=== PATIENT | male | born 1955 | race Caucasian/White ===

== ENCOUNTER 2020-10-11 18:04 | Emergency (ER) | payer MEDICARE, MEDICAID, SELFPAY ==
--- NOTE | ~2020-10-11 | XR_ITS ---
EXAMINATION: XR hip RT 2V w AP pelvis DATE: 10/11/2020 19:05 INDICATION: Right hip and pelvic injury post fall TECHNIQUE: Anteroposterior view of the pelvis and anteroposterior, frog leg and cross-table lateral v iews of the right hip were obtained. COMPARISON: None. FINDINGS: Intratrochanteric fracture of the proximal right femur which extends small distance into the anterior subtrochanteric region. 7 mm posterior displacement and approximately 30 degrees varus angulation. T he right femoral head remains normally centered in the right acetabulum with relatively preserved radha ateral hip joint spaces. No other fractures identified. Mild mild lumbosacral dextrocurvature. Modera te to severe bilateral lumbosacral facet osteoarthritis. IMPRESSION: 1. Mild posterior displacement and 30 degrees varus angulation of an intratrochanteric/subtrochanteri c fracture of the proximal right femur. Reviewed, dictated and finalized at location A. IMPRESSION: 1. Mild posterior displacement and 30 degrees varus angulation of an intratroch anteric/subtrochanteric fracture of the proximal right femur.
[2020-10-11 18:58] VITALS: BP 142/92; PULSE 75; RESP 20; TEMP 36.7; O2SAT 98
--- NOTE | 2020-10-11 20:50 | ED.LOWEXIN ---
HPI - Extremity Injury (Lower) General Chief Complaint: Extremity Injury, Lower Stated Complaint: AMB Source: patient and EMS Mode of arrival: EMS Limitations: physical limitation History of Present Illness HPI Narrative: this is 65-year-old gentleman that presents to the hospital emergency department with some right hip pain after he fell out of bed trying to get to the bathroom. The patient has a history of post-polio syndrome is currently nonambulatory but has a pain that he rates it about a currently 4/10 patient was given pain medication and route via EMS currently he is comfortable with no shortness of breath no fever chills no chest pain no abdominal pain no dysuria. The only medication he takes at home is narcotic/ gabapentin that he takes for chronic pain secondary to his post-polio syndrome. complaint: hip injury Onset (ago): hour(s) Injury: Right: hip ( hip pain) Type of Injury: blunt Place: home Severity: moderate Severity scale (1-10): 6 Relieving factors: immobilization and rest Exacerbating factors: movement Context: fall Related Data Home Medications Medication Instructions Recorded Confirmed gabapentin 600 mg PO BID 10/11/20 10/11/20 oxycodone myristate [Xtampza ER] 9 mg PO DAILY 10/11/20 10/11/20 oxycodone-acetaminophen 1 tablet PO TID 10/11/20 10/11/20 Allergies Allergy/AdvReac Type Severity Reaction Status Date / Time citalopram Allergy Unknown Unknown Verified 10/11/20 19:05 Review of Systems Review of Systems: All systems reviewed & are unremarkable except as noted in HPI and below PMFSH Past Medical History Medical History Post-polio syndrome Family History Family History Father Diabetes mellitus Hypertension Mother Diabetes mellitus Hypertension Social History Social History Smoking status: Never smoker Alcohol intake: never Gender identity (if verbalized by the patient): Male Exam Const: General: no acute distress HENMT: Head: normal to inspection Eyes: Conjunctivae: conjunctivae normal Pupils: Equal, round and reactive pupils present EOM: EOMs intact bilaterally Direct Ophthalmoscopy: no photophobia Neck: Neck: normal visual inspection, no lymphadenopathy and no meningeal signs Chest: Chest palpation & inspection: normal inspection of the chest Resp: Effort & Inspection: normal respiratory effort Auscultation: clear to auscultation bilaterally Cardio: Rate: regular rate Rhythm: regular rhythm GI: GI Palp: Yes Soft to palpation Percussion: Yes normal to percussion : Testes: Testes normal Back/Spine/Pelvis: Back: no CVA tenderness Skin: General skin exam: normal color Rashes: no rashes Neuro: General: patient oriented x3 and no focal motor deficits Extrem: Other: patient with post-polio syndrome has a chronic contractures of his lower extremities and having pain with movement of his right hip area Psych: Appearance: grossly normal Mental Status: mental status grossly normal Affect: normal affect Thought content: Yes Normal thought content present Course Course Emergency Course: patient do reassessment is comfortable pain level is tolerable and no acute distress vitals are stable, talked to [facility] which has accepted to their service. [facility] accepted patient Vital Signs Vital signs: Vital Signs Temperature 36.7 C 10/11/20 18:58 Pulse Rate 75 10/11/20 18:58 Respiratory Rate 20 10/11/20 18:58 Blood Pressure 142/92 H 10/11/20 18:58 Pulse Oximetry 98 10/11/20 18:58 Temperature 36.7 C 10/11/20 18:58 Pulse Rate 75 10/11/20 18:58 Respiratory Rate 20 10/11/20 18:58 Blood Pressure 142/92 H 10/11/20 18:58 Pulse Oximetry 98 10/11/20 18:58 Critical Care Time Critical Care Time Critical Care Time: No Di
--- NOTE | 2020-10-11 21:20 | ECG_ITS ---
Measurements Intervals [place] Rate: P: [place]: QRS: QRSD: T: QT: QTc: Interpretive Statements SINUS TACHYCARDIA RIGHT AXIS DEVIATION RIGHT BUNDLE BRANCH BLOCK ABNORMAL ECG Electronically Signed On 10-13-2020 12:24:40 CDT by Mehran Vigil D.O.
[2020-10-11 21:38] LABS: Basophils Absolute Auto 0.06 K/mm3 (0.00-0.10); Basophils Percent Auto 0.3 % (0.0-1.0); Eosinophils Absolute Auto 0.04 K/mm3 (0.02-0.50); Eosinophils Percent Auto 0.2 % (1.0-6.0); Hematocrit 45.1 % (37.0-46.0); Hemoglobin 14.4 g/dL (12.4-15.3); Immature Granulocyte Absolute 0.09 K/mm3 (0.00-0.00); Immature Granulocyte Percent A 0.5 % (0.0-0.0); Lymphocytes Absolute Auto 1.16 K/mm3 (1.10-4.50); Lymphocytes Percent Auto 6.6 % (18.0-42.0); Mean Corpuscular HGB Conc 31.9 g/dL (32.0-36.0); Mean Corpuscular Hemoglobin 30.6 pg (27.0-31.0); Monocytes Absolute Auto 1.18 K/mm3 (0.10-0.90); Monocytes Percent Auto 6.7 % (2.0-11.0); Neutrophils Percent Auto 85.7 % (50.0-70.0); Platelet Count Result 275 K/mm3 (150-420); Red Cell Distribution Width 13.5 % (11.6-14.4); White Blood Count 17.6 K/mm3 (4.8-10.8)
[2020-10-11 21:58] LABS: Alanine Aminotransferase 19 U/L (16-63); Albumin Level 3.6 g/dL (3.4-5.0); Alkaline Phosphatase 96 U/L (46-116); Anion Gap 5 mmol/L (8-16); Aspartate Amino Transferase 13 U/L (15-37); Bilirubin,Total 0.4 mg/dL (0.00-1.00); Blood Urea Nitrogen 12 mg/dL (7-18); Calcium 8.9 mg/dL (8.5-10.1); Carbon Dioxide 32 mmol/L (21-32); Chloride 102 mmol/L (98-108); Estimated CRCL calculation 87 ml/min; Estimated Glomerular Filt Rate > 60; Glucose 142 mg/dL (70-99); Osmolality Calculated 289 mOsm/kg (285-295); Partial Thromboplastin Time 27.1 SEC (23.90-30.70); Potassium 3.8 mmol/L (3.5-5.1); Prothrombin Time 10.5 Seconds (9.50-12.10); Sodium 139 mmol/L (136-145); Total Protein 7.1 g/dL (6.4-8.2)
[2020-10-11 22:09] LABS: Add Urine Microscopic? NO; Appearance Urine Clear (Clear); Bilirubin Urine Negative (Negative); Blood Urine Negative (Negative); Color Urine Yellow (Yellow); Glucose Urine UA Negative (Negative); Ketones Urine Negative (Negative); Leukocyte Esterase Ur Negative (Negative); Nitrate Urine Negative (Negative); Protein Urine Negative (Negative); Specific Grav Ur <= 1.005 (1.010-1.020); Urobilinogen Urine 0.2 mg/dL (0.2-1.0)
[2020-10-11 22:12] VITALS: BP 140/90; PULSE 72; RESP 20; O2SAT 95
[2020-10-11] MEDS: MORPHINE SULFATE (*CRX) 4 MG/ML INJ IV PUSH (22:35)
[2020-10-11 23:19] VITALS: BP 96/82; PULSE 78; RESP 20; TEMP 36.9
--- NOTE | 2020-10-11 23:46 | PC.NURSE ---
gbaas here , report to javier, ems staff. pt loaded to cot.
[2020-10-12 00:02] VITALS: BP 142/79; PULSE 87; RESP 20; TEMP 36.6; O2SAT 94
== END 2020-10-12 00:03 | disposition short-term general hospital (02) ==
PROVIDERS: Emergency Provider Emergency Medicine
DX: S72.21XA Displaced subtrochanteric fracture of right femur, initial encounter for closed fracture (principal); W06.XXXA Fall from bed, initial encounter
CPT/HCPCS: 36415; 73502; 80053; 81003; 85025; 85610; 85730; 93005; 96374; 99285; J2270

== ENCOUNTER 2020-10-12 02:09 | Inpatient (IN) | payer MEDICARE, MEDICAID, SELFPAY ==
--- NOTE | ~2020-10-12 | XR_ITS ---
EXAMINATION: XR surgery orthopedic EXAM DATE: 10/14/2020 13:03 INDICATION: Right hip gamma nail insertion. TECHNIQUE: Fluoroscopy used during XR surgery orthopedic performed by Dr. Berny Frost MD. Rad iologist was not present for the imaging or procedure. Total fluoroscopic time of 1083 seconds. The DAP for this procedure was 2.2 mGym2. A total of 6 images sent to PACS from the exam. There is no prior study for comparison. FINDINGS: Images demonstrate intertrochanteric fracture, right hip gamma nail in expected position. Correlate with procedure note. IMPRESSION: Fluoroscopy used during right hip gamma nail insertion. Reviewed, dictated and finalized at location B.
--- NOTE | 2020-10-12 00:53 | ADMGEN ---
This patient, Pan Sullivan, was admitted to Medical Room 255-01 10/12/2020 @ 0030. Patient/family oriented to hospital policies and general routines including ID bracelet, bed and alarms, visiting hours, pain management, procedures, bathroom and other care routines, personal items, smoking policy, room service/diet, and visiting hours. Information on how to activate the Rapid Response Team has been discussed. Patient/Family are encouraged to report perceived risks to care and to ask questions if they do not understand what they are told or what they should do.
[2020-10-12 01:00] VITALS: BP 101/83; PULSE 95; RESP 20; TEMP 36.6; O2SAT 97
[2020-10-12 01:03] VITALS: BMI 22.1
[2020-10-12] MEDS: SODIUM CHLORIDE 0.9% IV 1,000 ML 100 ML IV CONT (02:31)
[2020-10-12] MEDS: MORPHINE SULFATE (*CRX) 4 MG/ML INJ IV PUSH (02:32)
[2020-10-12] MEDS: HYDROmorphone HCL INJ (*CRX) 1 MG/ML SYR IV PUSH ×4 (05:28→20:44)
[2020-10-12 06:11] VITALS: BP 117/84; PULSE 97; RESP 20; TEMP 36.4; O2SAT 97
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
--- NOTE | 2020-10-12 08:47 | PM.IMPN ---
Progress Note: A&P Assessment and Plan (1) Fracture of femur: Qualifiers: Encounter type: initial encounter Femur location: subtrochanteric Fracture alignment: displaced Fracture type: closed Laterality: right Qualified Code(s): S72.21XA - Displaced subtrochanteric fracture of right femur, initial encounter for closed fracture <Angelia Joyner PA-C - Last Filed: 10/12/20 09:01> Code(s): S72.90XA - Unspecified fracture of unspecified femur, initial encounter for closed fracture <Angelia Joyner PA-C - Last Filed: 10/12/20 09:01> Status: Acute <Angelia Joyner PA-C - Last Filed: 10/12/20 09:01> Assessment and Plan: Symptoms an x-ray consistent with hip fracture -x-ray reveals Mild posterior displacement and 30 degrees varus angulation of an intratrochanteric/subtrochanteric fracture of the proximal right femur. -Dr. Patterson has been consulted -patient may require increased narcotics since he takes Xtampza at home as well as oxy 7.5 PRN -Will continue oxycodone 7.5mg and Dilaudid for now and adjust as needed. -The patient is NPO due to potential for possible surgical procedure. <Angelia Joyner PA-C - Last Filed: 10/12/20 09:01> (2) Leukocytosis: Code(s): D72.829 - Elevated white blood cell count, unspecified <Angelia Joyner PA-C - Last Filed: 10/12/20 09:01> Status: Acute <Angelia Joyner PA-C - Last Filed: 10/12/20 09:01> Assessment and Plan: Most likely reactive and not due to acute infectious process -no signs or symptoms of infection <Angelia Joyner PA-C - Last Filed: 10/12/20 09:01> (3) Post-polio syndrome: Code(s): G14 - Postpolio syndrome <Angelia Joyner PA-C - Last Filed: 10/12/20 09:01> Status: Acute <Angelia Joyner PA-C - Last Filed: 10/12/20 09:01> Assessment and Plan: Chronic and lives at home and is usually able to transfer from the bed to wheelchair without issue. -will need PT/OT depending on ortho recommendations <Angelia Joyner PA-C - Last Filed: 10/12/20 09:01> Time Spent With Patient Time with patient: 25 - 35 minutes <KIYA Castaneda Last Filed: 10/12/20 09:01> Subjective Date/time seen: 10/12/20 08:47 <KIYA Castaneda Last Filed: 10/12/20 09:01> Interval history: Pt is a 65-year-old male here for hip fracture after falling out of bed. Patient was seen today and states his pain is a 7/10. He says it feels okay if he is still but if he moves at all, he is in significant pain. He has no numbness or tingling to the area but he says that leg is pretty flaccid because of his chronic polio affects. Pt denies nausea, vomiting, fevers, chills, dysuria, constipation, diarrhea, chest pain, sob, or abdominal pain. <KIYA Castaneda Last Filed: 10/12/20 09:01> Review of Systems Review of Systems: All systems reviewed & are unremarkable except as noted in HPI and below <KIYA Castaneda Last Filed: 10/12/20 09:01> Exam Narrative: Exam Narrative: General: Patient resting comfortably in bed in no acute distress HEENT: Asymmetry due to polio Neck: supple Neuro: Alert and oriented x 4. CV:RRR Resp:CTA Abd: Soft, non distended. No pain to palpation. Positive bowel sounds. Well-healed scars from previous abdominal surgeries Extremities: Right leg externally rotated with 2+ pulses. He states this leg is flaccid and can be moved in any position but he has no strength whatsoever at baseline. <KIYA Castaneda Last Filed: 10/12/20 09:01> Objective Data Vital Signs Vital Signs: Vital Signs - 24 hr 10/12/20 01:00 10/12/20 06:11 Temperature 97.9 F 97.5 F L Pulse Rate 95 97 Respiratory Rate 20 20 Blood Pressure 101/83 117/84 Pulse Oximetry 97 97 <Angelia Joyner PA-C - Last Filed: 10/12/20 09:01> Intake/Output Intake/Output: Intake & Output 10/09/20 04
[2020-10-12] MEDS: GABAPENTIN 300 MG CAPSULE 600 MG PO ×2 (09:05→20:20)
[2020-10-12] MEDS: oxyCODONE/ACETAMINOPHEN (*CRX) 5-325 MG TABLET 1 TABLET PO ×2 (09:12→16:28)
[2020-10-12] MEDS: SODIUM CHLORIDE 0.9% IV 1,000 ML 75 ML IV CONT (12:21)
[2020-10-12 14:00] VITALS: BP 122/83; PULSE 91; RESP 16; TEMP 36.8; O2SAT 94
--- NOTE | 2020-10-12 15:30 | PM.CNOR ---
Assessment and Plan Additional Plan 4 YO MALE WITH POST POLIO SYNDROME AND NOW WITH RIGHT INTER TROCHANTERIC HIP FRACTURE. I HAD A LONG DISCUSSION WITH PATIENT AND SISTER WHO IS HIS 1a SCIENTIFIC TECHNICAL WRITER. HE WILL REQUIRE PLACEMENT OF GAMMA ANNE RIGHT FEMUR. DISCUSSED NONOPERATIVE AND OPERATIVE TREATMENT OPTIONS WITH THE PATIENT AND HIS SISTER. THE PATIENT'S QUESTIONS WERE ANSWERED. THE PATIENT DESIRES OPERATIVE TREATMENT. DISCUSSED RIGHT GAMMA ANNE PLACEMENT . RISKS OF SURGERY INCLUDING BUT NOT LIMITED TO NEUROVASCULAR DAMAGE, WOUND COMPLICATIONS, BLOOD CLOT, PULMONARY EMBOLUS, STROKE, MA, ANESTHETIC RISKS UP TO AND INCLUDING WERE REVIEWED. CONTINUED PAIN AND POSSIBLE DYSFUNCTION WERE EXPLAINED. NO GUARANTEES WERE OFFERED. THE PATIENT UNDERSTANDS AND WISHES TO PROCEED. WE WILL PROCEED ONCE HE IS CLEARED BY INTERNAL MEDICINE. History of Present Illness HPI Consult date: 10/12/20 Chief complaint: Hip fracture Narrative: NEEMA IS A 65 YO GENTLE WITH POST POLIO SYNDROME WHO FELL OUT OF BED AND LANDED ON HIS RIGHT SIDE SUSTAINING A RIGHT INTER TROCHANTERIC HIP FRACTURE. HE HAS HAD POLIO SINCE HE WAS A CHILD. HIS RIGHT LOWER EXTREMITY HAS BEEN AFFECTED GREATER THAN HIS LEFT. HE ALSO HAS MORE COMPROMISE WITH HIS UPPER EXTREMITIES AND MOVEMENT IS LIMITED. HE HAS SEVERE PAIN WITH ANY MOVEMENT OF THE RIGHT HIP. HE DENIES ANY PAIN TO HIS OTHER EXTREMITIES NECK AND BACK. HE DENIES ANY LOC. HE IS OX3. Review of Systems Review of Systems: All systems reviewed & are unremarkable except as noted in HPI and below (THE HISTORY) PMFSH Past Medical History Medical History Anxiety Chronic pain due to trauma Closed left hip fracture At age 18 treated nonsurgically Depression Post-polio syndrome Surgical History Surgical History History of orthopedic surgery Multiple corrective surgeries at [facility] his left leg when he was approximately 10 years old S/P rolan-rectal abscess repair, follow-up exam Status post open reduction with internal fixation of fracture Left ankle fracture Family History Family History Father Diabetes mellitus Hypertension Mother Diabetes mellitus Hypertension Sibling Congenital cataract Blind in both eyes Social History Social History Social History: The patient and his one sister live together. He has been wheelchair dependent for 20 years. He has been on disability for his lifetime. He smoked about a half pack of cigarettes per day for less than 10 years but quit smoking in his 20s. He denies any history of alcohol use or illicit substance use. He has never been and does not have any children. He used to enjoy riding motorcycles when he was younger. Primary care physician: Dr. Steen Code status: DNR/DNI per patient request Surrogate decision maker: Heidimanuel Sullivan (sister) Years smoked: 10 Smoking status: Former smoker Tobacco type: cigarettes Alcohol intake: never Substance use: never Gender identity (if verbalized by the patient): Male Spiritual care concerns: No Meds Home Medications and Allergies Home Medications Medication Instructions Recorded Confirmed Type gabapentin 600 mg PO BID 10/11/20 10/12/20 History oxycodone myristate [Xtampza ER] 9 mg PO DAILY 10/11/20 10/12/20 History oxycodone-acetaminophen 1 tablet PO TID 10/11/20 10/12/20 History Allergies Allergy/AdvReac Type Severity Reaction Status Date / Time No Known Allergies Allergy Verified 10/12/20 01:11 Vital Signs Vital Signs - 24 hr 10/12/20 01:00 10/12/20 06:11 10/12/20 14:00 Temperature 36.6 C 36.4 C L 36.8 C Pulse Rate 95 97 91 Respiratory Rate 20 20 16 Blood Pressure 101/83 117/84 122/83 Pulse Oximetry 97 97 94 Exam Neuro:
[2020-10-12] MEDS: oxyCODONE HCL (*CRX) 2.5 MG TAB IR PO (16:28)
[2020-10-12 22:00] VITALS: BP 109/66; PULSE 87; RESP 18; TEMP 36.8; O2SAT 96
[2020-10-13] MEDS: oxyCODONE/ACETAMINOPHEN (*CRX) 5-325 MG TABLET 1 TABLET PO ×3 (01:17→20:08)
[2020-10-13] MEDS: SODIUM CHLORIDE 0.9% IV 1,000 ML 75 ML IV CONT ×2 (02:42→16:14)
[2020-10-13] MEDS: HYDROmorphone HCL INJ (*CRX) 1 MG/ML SYR IV PUSH ×5 (02:44→23:53)
[2020-10-13 05:19] LABS: Basophils Absolute Auto 0.1 K/mm3 (0.0-0.1); Basophils Percent Auto 0.4 % (0.2-1.2); Eosinophils Absolute Auto 0.3 K/mm3 (0-0.3); Eosinophils Percent Auto 1.8 % (0-4.4); Hematocrit 40.6 % (42.0-52.0); Hemoglobin 12.8 g/dL (14.0-18.0); Immature Granulocyte Absolute 0.06 K/mm3 (0.00-0.031); Immature Granulocyte Percent A 0.4 % (0-0.5); Lymphocytes Absolute Auto 1.84 K/mm3 (0.9-3.2); Lymphocytes Percent Auto 13.5 % (18.3-44.2); Mean Corpuscular HGB Conc 31.5 g/dl (32-36); Mean Corpuscular Hemoglobin 30.5 pg (26-34); Mean Corpuscular Volume 96.7 fl (80-100); Mean Platelet Volume 9.8 fl (7.4-10.4); Monocytes Absolute Auto 1.4 K/mm3 (0.1-0.6); Monocytes Percent Auto 10.5 % (2.6-8.5); Neutrophils Absolute Auto 10.1 K/mm3 (1.3-6.7); Neutrophils Percent Auto 73.4 % (45.5-73.1); Platelet Count Result 237 k/mm3 (150-375); Red Cell Distribution Width 13.7 % (11.5-14.5); White Blood Count 13.7 K/mm3 (4.5-10.0)
[2020-10-13 05:32] LABS: Anion Gap 2 mmol/L (8-16); Blood Urea Nitrogen 8 mg/dL (9-20); Calcium 8.4 mg/dL (8.4-10.2); Carbon Dioxide 30 mmol/L (22-30); Chloride 107 mmol/L (98-107); Estimated CRCL calculation 124 ml/min; Estimated Glomerular Filt Rate > 60; Glucose 90 mg/dL (75-110); Potassium 3.6 mmol/L (3.4-5.0); Sodium 139 mmol/L (137-145)
[2020-10-13 06:00] VITALS: BP 124/74; PULSE 88; RESP 20; TEMP 36.9; O2SAT 98
[2020-10-13] MEDS: GABAPENTIN 300 MG CAPSULE 600 MG PO ×2 (08:08→20:08)
--- NOTE | 2020-10-13 09:56 | PM.PNORT ---
Progress Note: A&P Assessment and Plan (1) Intertrochanteric fracture of right femur: Qualifiers: Encounter type: initial encounter Fracture type: closed Fracture alignment: displaced Qualified Code(s): S72.141A - Displaced intertrochanteric fracture of right femur, initial encounter for closed fracture Code(s): S72.141A - Displaced intertrochanteric fracture of right femur, initial encounter for closed fracture Status: Acute Assessment and Plan: 65-year-old male admitted status post fall out of bed under the right hip. Radiographs of the right hip reveal intratrochanteric/subtrochanteric fracture of the proximal right femur. Fracture type, condition, nature, etiology and course of natural history reviewed with the patient today. Patient desires surgical intervention. All questions were answered. Discussed RIGHT Hip Gamma Anne Risks of surgery including but not limited to neurovascular damage, wound complications, blood clot, pulmonary embolus, stroke, myocardial infarction, anesthetic risks up to and including were reviewed. Continued pain and possible dysfunction were explained. No guarantees were offered. The patient understands and wishes to proceed. Plan: RIGHT HIP GAMMA ANNE by Dr. Frost pending medical clearance NPO at midnight Ice lateral hip. Pain control. Bed rest in the interim. Subjective Subjective Date/Time Seen: 10/13/20 09:56 Interval history: Patient continues to complain of right hip pain. No new complaints today. Review of Systems Review of Systems: All systems reviewed & are unremarkable except as noted in HPI and below (THE HISTORY) Exam Const: General: comfortable and no acute distress Resp: Effort & Inspection: normal respiratory effort Cardio: Rate: regular rate Rhythm: regular rhythm GI: Inspection: non-distended GI Palp: Yes Soft to palpation and No Tenderness to palpation present (GI) Neuro: General: patient oriented x3 Motor exam (neuro): Abnormal motor strength present and Abnormal muscle tone present Sensory Exam: Abnormal lower extremity sensory exam Extrem: General: capillary refill normal, no calf tenderness and muscle atrophy Right upper extremity: shoulder/upper arm abnormal to inspection and abnormal ROM; no tenderness, no swelling, no abrasions, no lacerations and no ecchymosis, elbow/forearm abnormal to inspection and abnormal ROM; no tenderness and no swelling and wrist abnormal to inspection and abnormal ROM; no tenderness, no swelling and no ecchymosis Left upper extremity: normal capillary refill, shoulder/upper arm abnormal to inspection and abnormal ROM; no tenderness and no swelling, elbow/forearm abnormal to inspection and abnormal ROM; no tenderness and no swelling and wrist abnormal to inspection and abnormal ROM; no tenderness and no swelling Right lower extremity: normal capillary refill, hip/thigh Details: abnormal to inspection, tenderness, swelling, abnormal ROM Details: pain with passive ROM during Details: to internal rotation and to external rotation and ecchymosis, knee, lower leg, ankle and foot Left lower extremity: hip/thigh, knee, lower leg and ankle Objective Data Vital Signs Vital Signs: Vital Signs - 24 hr 10/12/20 14:00 10/12/20 22:00 10/13/20 06:00 Temperature 36.8 C 36.8 C 36.9 C Pulse Rate 91 87 88 Respiratory Rate 16 18 20 Blood Pressure 122/83 109/66 124/74 Pulse Oximetry 94 96 98 Intake/Output Intake/Output: Intake & Output 10/10/20 10/11/20 10/12/20 10/13/20 23:59 23:59 23:59 23:59 Intake Total 1285 1000 Output Total 350 500 Balance 935 500 Meds/Results Medications: Active Medications Generic Name Dose Route Start Last Admin Trade Name Freq PRN Reason Stop Dose Admin Acetaminophen 650 mg 10/12/20 09:00 Acetaminophen 325 Mg Tablet PO Q6H PRN Mild Pain (1-3) or Fever Gabapentin 600 mg 10/12/20 09:00 10/13/20 08:08 Gabapentin 300 Mg Capsule PO
--- NOTE | 2020-10-13 11:16 | PM.IMPN ---
Progress Note: A&P Assessment and Plan (1) Fracture of femur: Qualifiers: Encounter type: initial encounter Femur location: subtrochanteric Fracture alignment: displaced Fracture type: closed Laterality: right Qualified Code(s): S72.21XA - Displaced subtrochanteric fracture of right femur, initial encounter for closed fracture Code(s): S72.90XA - Unspecified fracture of unspecified femur, initial encounter for closed fracture Status: Inactive Assessment and Plan: Symptoms an x-ray consistent with hip fracture -x-ray reveals Mild posterior displacement and 30 degrees varus angulation of an intratrochanteric/subtrochanteric fracture of the proximal right femur. -Dr. Patterson has been consulted and plans to do sx 10/14/20 -patient may require increased narcotics since he takes Xtampza at home as well as oxy 7.5 PRN. He had only been getting oxy 5mg and occasionally the 2.5 was added to that so I have adjusted the order to specifically state they should be given both together to make his 7.5mg that he takes at home. -NPO midnight (2) Leukocytosis: Code(s): D72.829 - Elevated white blood cell count, unspecified Status: Acute Assessment and Plan: Improving, most likely reactive and not due to acute infectious process -no signs or symptoms of infection (3) Post-polio syndrome: Code(s): G14 - Postpolio syndrome Status: Acute Assessment and Plan: Chronic and lives at home and is usually able to transfer from the bed to wheelchair without issue. -will need PT/OT depending on ortho recommendations Time Spent With Patient Time with patient: 25 - 35 minutes Subjective Date/time seen: 10/13/20 11:16 Interval history: Pt is a 65 year old male here for hip fracture. Patient states his pain is 8/10 and he is due for pain medications. He says the pain medication does help his pain but does not take it away fully. Pt denies nausea, vomiting, fevers, chills, constipation, diarrhea, chest pain, sob, or abdominal pain. Review of Systems Review of Systems: All systems reviewed & are unremarkable except as noted in HPI and below Exam Narrative: Exam Narrative: General: Patient resting comfortably in bed in no acute distress HEENT: Asymmetry due to polio Neck: supple Neuro: Alert and oriented x 4. sensation intact in the right leg CV:RRR Resp:CTA Abd: Soft, non distended. No pain to palpation. Positive bowel sounds. Well-healed scars from previous abdominal surgeries Extremities: Right leg externally rotated with 2+ pulses and sensation intact. He states this leg is flaccid and can be moved in any position but he has no strength whatsoever at baseline. Objective Data Vital Signs Vital Signs: Vital Signs - 24 hr 10/12/20 14:00 10/12/20 22:00 10/13/20 06:00 Temperature 98.3 F 98.2 F 98.4 F Pulse Rate 91 87 88 Respiratory Rate 16 18 20 Blood Pressure 122/83 109/66 124/74 Pulse Oximetry 94 96 98 Intake/Output Intake/Output: Intake & Output 10/10/20 10/11/20 10/12/20 10/13/20 23:59 23:59 23:59 23:59 Intake Total 1285 1000 Output Total 350 500 Balance 935 500 Meds/Results Medications: Active Medications Generic Name Dose Route Start Last Admin Trade Name Freq PRN Reason Stop Dose Admin Acetaminophen 650 mg 10/12/20 09:00 Acetaminophen 325 Mg Tablet PO Q6H PRN Mild Pain (1-3) or Fever Gabapentin 600 mg 10/12/20 09:00 10/13/20 08:08 Gabapentin 300 Mg Capsule PO 600 mg Q12HR PUSHPA Administration Hydromorphone HCl 1 mg 10/12/20 09:00 10/13/20 09:47 Hydromorphone Hcl Inj (*Crx) 1 Mg/Ml Syr IV PUSH 1 mg Q2HR PRN Administration 7-10 Sodium Chloride 1,000 mls @ 75 mls/hr 10/12/20 02:10 10/13/20 02:42 Normal Saline Iv IV CONT 75 mls/hr .[id number] PUSHPA Administration Naloxone HCl 0.1 mg 10/12/20 08:53 Naloxone Hcl 0.4 Mg/Ml Vial IV PUSH Q5MIN PRN narcot
[2020-10-13] MEDS: oxyCODONE HCL (*CRX) 2.5 MG TAB IR PO ×2 (12:46→20:09)
[2020-10-13 14:00] VITALS: BP 113/67; PULSE 104; RESP 16; TEMP 36.7; O2SAT 97
[2020-10-13 16:00] VITALS: BP 122/82; PULSE 88; RESP 18; TEMP 36.9; O2SAT 96
--- NOTE | 2020-10-13 18:09 | WPDANESEPP ---
Anes - Eval Pre Procedure Procedure: Operation Date: 10/14/20 10:30 Proposed Procedures p Right Hip Gamma Taurus - Berny Frost MD Date/Time: 10/13/20 18:09 Pre Op Diagnosis: Hip fracture Patient Data Age: 65 Gender: M Height: 5 ft 5 in Weight: 60.4 kg Last Vital Signs Temp 98.4 F 10/13/20 16:00 Pulse 88 10/13/20 16:00 Resp 18 10/13/20 16:00 BP 122/82 10/13/20 16:00 Pulse Ox 96 10/13/20 16:00 Allergies Allergy/AdvReac Type Severity Reaction Status Date / Time No Known Allergies Allergy Verified 10/12/20 01:11 Home Medications Medication Instructions Recorded Confirmed Type gabapentin 600 mg PO BID 10/11/20 10/12/20 History oxycodone myristate [Xtampza ER] 9 mg PO DAILY 10/11/20 10/12/20 History oxycodone-acetaminophen 1 tablet PO TID 10/11/20 10/12/20 History Laboratory Tests 10/13/20 10/13/20 10/13/20 05:12 05:12 10:22 WBC 13.7 K/mm3 H K/mm3 (4.5-10.0) RBC 4.20 M/mm3 L M/mm3 (4.6-6.20) Hgb 12.8 g/dL L g/dL (14.0-18.0) Hct 40.6 % L % (42.0-52.0) MCV 96.7 fl fl (80-100) MCH 30.5 pg pg (26-34) MCHC 31.5 g/dl L g/dl (32-36) RDW 13.7 % % (11.5-14.5) Plt Count 237 k/mm3 k/mm3 (150-375) MPV 9.8 fl fl (7.4-10.4) Immature Gran % (Auto) 0.4 % % (0-0.5) Neut % (Auto) 73.4 % H % (45.5-73.1) Lymph % (Auto) 13.5 % L % (18.3-44.2) [place] % (Auto) 10.5 % H % (2.6-8.5) Eos % (Auto) 1.8 % % (0-4.4) Baso % (Auto) 0.4 % % (0.2-1.2) Lymph # (Auto) 1.84 K/mm3 K/mm3 (0.9-3.2) [place] # (Auto) 1.4 K/mm3 H K/mm3 (0.1-0.6) Eos # (Auto) 0.3 K/mm3 K/mm3 (0-0.3) Baso # (Auto) 0.1 K/mm3 K/mm3 (0.0-0.1) Abs Immat Gran (auto) 0.06 K/mm3 H K/mm3 (0.00-0.031) Absolute Neuts (auto) 10.1 K/mm3 H K/mm3 (1.3-6.7) Absolute Nucleated RBC 0.0 K/mm3 K/mm3 (0.0-0.012) Nucleated RBC % 0.0 % % (0.0-0.2) Sodium 139 mmol/L mmol/L (137-145) Potassium 3.6 mmol/L mmol/L (3.4-5.0) Chloride 107 mmol/L mmol/L (98-107) Carbon Dioxide 30 mmol/L mmol/L (22-30) Anion Gap 2 mmol/L L mmol/L (8-16) BUN 8 mg/dL L mg/dL (9-20) Creatinine 0.40 mg/dL L mg/dL (0.7-1.3) Estim Creat Clear Calc 124 ml/min ml/min Estimated GFR > 60 (59 - ) Glucose 90 mg/dL mg/dL (75-110) Calcium 8.4 mg/dL mg/dL (8.4-10.2) Blood Type B Positive Antibody Screen Negative Patient hx anesthesia problems: none Family hx anesthesia problems: none PMFSH Past Medical History Medical History Anxiety Anxiety and depression Chronic pain Chronic pain due to trauma Closed left hip fracture At age 18 treated nonsurgically Depression Intertrochanteric fracture of right femur Post-polio syndrome Surgical History Surgical History History of orthopedic surgery Multiple corrective surgeries at [facility] his left leg when he was approximately 10 years old S/P rolan-rectal abscess repair, follow-up exam Status post open reduction with internal fixation of fracture Left ankle fracture Family History Family History Father Diabetes mellitus Hypertension Mother Diabetes mellitus Hypertension Sibling Congenital cataract Blind in both eyes Social History Social History Social History: The patient and his one sister live together. He has been wheelchair dependent for 20 years. He has been on disability for his lifetime. He smoked about a half pack of cigarettes per day for less than 10 years but quit smoking i
[2020-10-13 20:00] VITALS: PULSE 87; RESP 16; O2SAT 100
[2020-10-13 20:48] VITALS: BP 139/85; PULSE 87; RESP 16; TEMP 36.7; O2SAT 100
[2020-10-14] VITALS (13 sets, daily range): BP systolic 118–151; BP diastolic 68–107; PULSE 81–112; RESP 12–20; TEMP 36–36.7; O2SAT 95–100
[2020-10-14] MEDS: oxyCODONE HCL (*CRX) 2.5 MG TAB IR PO ×3 (03:51→22:48)
[2020-10-14] MEDS: oxyCODONE/ACETAMINOPHEN (*CRX) 5-325 MG TABLET 1 TABLET PO ×3 (03:51→22:49)
[2020-10-14 05:44] LABS: Hematocrit 36.1 % (42.0-52.0); Hemoglobin 11.8 g/dL (14.0-18.0); Mean Corpuscular HGB Conc 32.7 g/dl (32-36); Mean Corpuscular Hemoglobin 30.4 pg (26-34); Mean Platelet Volume 10.1 fl (7.4-10.4); Platelet Count Result 224 k/mm3 (150-375); Red Blood Count 3.88 M/mm3 (4.6-6.20); Red Cell Distribution Width 13.3 % (11.5-14.5); White Blood Count 11.5 K/mm3 (4.5-10.0)
[2020-10-14 05:45] LABS: Alanine Aminotransferase 12 U/L (4-50); Albumin Level 3.2 g/dL (3.5-5.1); Alkaline Phosphatase 62 U/L (38-126); Anion Gap 4 mmol/L (8-16); Aspartate Amino Transferase 26 U/L (17-59); Bilirubin,Total 0.6 mg/dL (0.2-1.3); Blood Urea Nitrogen 5 mg/dL (9-20); Calcium 8.3 mg/dL (8.4-10.2); Carbon Dioxide 27 mmol/L (22-30); Chloride 108 mmol/L (98-107); Estimated CRCL calculation 124 ml/min; Estimated Glomerular Filt Rate > 60; Glucose 92 mg/dL (75-110); Potassium 3.3 mmol/L (3.4-5.0); Sodium 139 mmol/L (137-145)
[2020-10-14] MEDS: SODIUM CHLORIDE 0.9% IV 1,000 ML 75 ML IV CONT ×2 (06:12→15:07)
[2020-10-14] MEDS: HYDROmorphone HCL INJ (*CRX) 1 MG/ML SYR IV PUSH ×5 (06:33→20:31)
--- NOTE | 2020-10-14 07:25 | WPDHPUPDATE1 ---
History and Physical Update Update Date/Time: 10/14/20 07:25 History and Physical has been reviewed, including an updated exam of the patient. There are NO changes in the patient's condition. Risks, benefits, and alternatives have been discussed and questions answered. Patient agrees to proceed with procedure.
[2020-10-14] MEDS: KCL 20 MEQ/SW 100 ML 100 ML 50 MEQ IVPB (07:54)
[2020-10-14] MEDS: GABAPENTIN 300 MG CAPSULE 600 MG PO ×2 (07:58→20:32)
[2020-10-14] MEDS: LACTATED RINGERS 1,000 ML 30 ML IV CONT ×2 (09:25→13:28)
--- NOTE | 2020-10-14 09:25 | PM.IMPN ---
Progress Note: A&P Assessment and Plan (1) Fracture of femur: Qualifiers: Encounter type: initial encounter Femur location: subtrochanteric Fracture alignment: displaced Fracture type: closed Laterality: right Qualified Code(s): S72.21XA - Displaced subtrochanteric fracture of right femur, initial encounter for closed fracture Code(s): S72.90XA - Unspecified fracture of unspecified femur, initial encounter for closed fracture Status: Inactive Assessment and Plan: Symptoms an x-ray consistent with hip fracture -x-ray reveals Mild posterior displacement and 30 degrees varus angulation of an intratrochanteric/subtrochanteric fracture of the proximal right femur. -Dr. Patterson has been consulted and plans to do sx today -patient may require increased narcotics since he takes Xtampza at home as well as oxy 7.5 PRN. For now, pt is saying the pain is improving. Will monitor after sx and make changes as needed. (2) Leukocytosis: Code(s): D72.829 - Elevated white blood cell count, unspecified Status: Acute Assessment and Plan: Improving, most likely reactive and not due to acute infectious process -no signs or symptoms of infection (3) Post-polio syndrome: Code(s): G14 - Postpolio syndrome Status: Acute Assessment and Plan: Chronic and lives at home and is usually able to transfer from the bed to wheelchair without issue. -will need PT/OT depending on ortho recommendations Subjective Date/time seen: 10/14/20 09:25 Interval history: Pt is a 65 year old male here for hip fracture. Patient states his pain is 7/10 and is improving since the medication changes. he has not had a BM yet but thinks he will have one today. His back hurts a little from laying in bed and requests a heating pad. He says this back pain is chronic and unchanged and that he ususally uses a heating pad at home. Pt denies nausea, vomiting, fevers, chills, constipation, diarrhea, chest pain, sob, or abdominal pain. Exam Narrative: Exam Narrative: General: Patient resting comfortably in bed in no acute distress HEENT: Asymmetry due to polio Neck: supple Neuro: Alert and oriented x 4. sensation intact in the right leg CV:RRR Resp:CTA Abd: Soft, non distended. No pain to palpation. Positive bowel sounds. Well-healed scars from previous abdominal surgeries Extremities: Right leg externally rotated with 2+ pulses and sensation intact. He states this leg is flaccid and can be moved in any position but he has no strength whatsoever at baseline. Objective Data Vital Signs Vital Signs: Vital Signs - 24 hr 10/13/20 14:00 10/13/20 16:00 10/13/20 20:00 Temperature 98.0 F 98.4 F Pulse Rate 104 H 88 87 Respiratory Rate 16 18 16 Blood Pressure 113/67 122/82 Pulse Oximetry 97 96 100 10/13/20 20:48 10/14/20 04:56 Temperature 98.1 F 98.1 F Pulse Rate 87 82 Respiratory Rate 16 20 Blood Pressure 139/85 134/82 Pulse Oximetry 100 96 Intake/Output Intake/Output: Intake & Output 10/11/20 10/12/20 10/13/20 10/14/20 23:59 23:59 23:59 23:59 Intake Total 1285 3030 1000 Output Total 350 1200 900 Balance 935 1830 100 Meds/Results Medications: Active Medications Generic Name Dose Route Start Last Admin Trade Name Freq PRN Reason Stop Dose Admin Acetaminophen 650 mg 10/12/20 09:00 Acetaminophen 325 Mg Tablet PO Q6H PRN Mild Pain (1-3) or Fever Gabapentin 600 mg 10/12/20 09:00 10/14/20 07:58 Gabapentin 300 Mg Capsule PO 600 mg Q12HR PUSHPA Administration Hydromorphone HCl 1 mg 10/12/20 09:00 10/14/20 08:35 Hydromorphone Hcl Inj (*Crx) 1 Mg/Ml Syr IV PUSH 1 mg Q2HR PRN Administration 7-10 Sodium Chloride 1,000 mls @ 75 mls/hr 10/12/20 02:10 10/14/20 06:12 Normal Saline Iv IV CONT 75 mls/hr .[id number] PUSHPA Administration Naloxone HCl 0.1 mg 10/12/20 08:53 Naloxone Hcl 0.4 Mg/Ml Vial IV PUSH Q5MI
--- NOTE | 2020-10-14 10:10 | WPDANESEPPF ---
Anes - Initial Pre Proc Eval Procedure: Operation Date: 10/14/20 10:30 Proposed Procedures p Right Hip Gamma Taurus - Berny Frost MD Date/Time: 10/14/20 10:10 Surgeon: Angelia Joyner PA-C Pre Op Diagnosis: Hip fracture Patient Data Age: 65 Gender: M Height: 5 ft 5 in Weight: 60.4 kg Last Vital Signs Temp 36.7 C 10/14/20 04:56 Pulse 82 10/14/20 04:56 Resp 20 10/14/20 04:56 BP 134/82 10/14/20 04:56 Pulse Ox 96 10/14/20 04:56 Allergies Allergy/AdvReac Type Severity Reaction Status Date / Time No Known Allergies Allergy Verified 10/14/20 09:30 Home Medications Medication Instructions Recorded Confirmed Type gabapentin 600 mg PO BID 10/11/20 10/12/20 History oxycodone myristate [Xtampza ER] 9 mg PO DAILY 10/11/20 10/12/20 History oxycodone-acetaminophen 1 tablet PO TID 10/11/20 10/12/20 History Laboratory Tests 10/13/20 10/14/20 10/14/20 10:22 05:23 05:23 WBC 11.5 K/mm3 H K/mm3 (4.5-10.0) RBC 3.88 M/mm3 L M/mm3 (4.6-6.20) Hgb 11.8 g/dL L g/dL (14.0-18.0) Hct 36.1 % L % (42.0-52.0) MCV 93.0 fl fl (80-100) MCH 30.4 pg pg (26-34) MCHC 32.7 g/dl g/dl (32-36) RDW 13.3 % % (11.5-14.5) Plt Count 224 k/mm3 k/mm3 (150-375) MPV 10.1 fl fl (7.4-10.4) Sodium 139 mmol/L mmol/L (137-145) Potassium 3.3 mmol/L L mmol/L (3.4-5.0) Chloride 108 mmol/L H mmol/L (98-107) Carbon Dioxide 27 mmol/L mmol/L (22-30) Anion Gap 4 mmol/L L mmol/L (8-16) BUN 5 mg/dL L mg/dL (9-20) Creatinine 0.40 mg/dL L mg/dL (0.7-1.3) Estim Creat Clear Calc 124 ml/min ml/min Estimated GFR > 60 (59 - ) Glucose 92 mg/dL mg/dL (75-110) Calcium 8.3 mg/dL L mg/dL (8.4-10.2) Total Bilirubin 0.6 mg/dL mg/dL (0.2-1.3) AST 26 U/L U/L (17-59) ALT 12 U/L U/L (4-50) Alkaline Phosphatase 62 U/L U/L (38-126) Total Protein 6.0 g/dL L g/dL (6.3-8.2) Albumin 3.2 g/dL L g/dL (3.5-5.1) Blood Type B Positive Antibody Screen Negative Patient hx anesthesia problems: none Family hx anesthesia problems: none [facility] Past Medical History Medical History Anxiety Anxiety and depression Chronic pain Chronic pain due to trauma Closed left hip fracture At age 18 treated nonsurgically Depression Intertrochanteric fracture of right femur Post-polio syndrome Surgical History Surgical History History of orthopedic surgery Multiple corrective surgeries at [facility] his left leg when he was approximately 10 years old S/P rolan-rectal abscess repair, follow-up exam Status post open reduction with internal fixation of fracture Left ankle fracture Family History Family History Father Diabetes mellitus Hypertension Mother Diabetes mellitus Hypertension Sibling Congenital cataract Blind in both eyes Social History Social History Social History: The patient and his one sister live together. He has been wheelchair dependent for 20 years. He has been on disability for his lifetime. He smoked about a half pack of cigarettes per day for less than 10 years but quit smoking in his 20s. He denies any history of alcohol use or illicit substance use. He has never been and does not have any children. He used to enjoy riding motorcycles when he was younger. Primary care physician: Dr. Steen Code status: DNR/DNI per patient request Surrogate decision maker: Heidi Sullivan (sister) Years smoked: 10 Smoking status: Former smoker Tobacco type
[2020-10-14] MEDS: TRANEXAMIC ACID 1,000MG/ISO100 1,000 MG/100 ML BAG 200 MG IVPB (10:40)
[2020-10-14] MEDS: ceFAZolin 2 GM/D5W 50 ML 2 GM/50 ML BAG IVPB (11:40)
--- NOTE | 2020-10-14 13:39 | P.OP_ITS ---
Procedure Note - Detailed Date of procedure: 10/14/20 Pre-op diagnosis: Hip fracture Right Hip Fracture Procedure performed: INSERTION OF GAMMA ANNE RIGHT HIP FRACTURE Description of procedure: THE PATIENT WAS TAKEN TO THE OR AND PLACED ON A FR ACTURE TABLE AFTER HAVEN BEEN GIVEN GENERAL ANESTHESIA. THE RIGHT LOWER EXTREMITY WAS PLACED IN A TRACTION BOOT AND USING SOME TRACTION AND INTERNAL ROTATION THE INNER TROCH FRACTURE WAS REDUCED TO ANATOMIC POSITION. NEXT THE RIGHT LOWER EXTREMITY WAS PREPPED AND DRAPED IN THE STERILE FASHION. AN INCISION WAS MADE PROXIMAL TO THE TIP OF THE GREATER TROCHANTER AND DISSECTION CONTINUED TILL THE TIP OF THE GREATER TROCHANTER WAS PALPATED. A GUIDE WAS PLACED DOWN THE FEMORAL CANAL AND PAST THE FRACTURE SITE. THIS WAS CHECKED ON FLUOROSCOPY AND FOUND TO BE IN GOOD POSITION. AN INITIAL REAMER WAS USED TO REAM THE FEMORAL CANAL. AN 11 BY 180 MM GAMMA ANNE WAS INSERTED TILL THE CORRECT POSITION WAS IDENTIFIED ON XRAY. A GUIDE PIN WAS INSERTED AT 125 DEG ANGLE TILL IT REACHED THE TIP OF THE SUB CHONDRAL BONE SEEN ON XRAY. AFTER REAMING, LAG SCREW WAS INSERTED AT 125 DE[address] ANGLE MEASURING 110 MM. XRAYS SHOWED IT TO BE IN GOOD POSITION. THE LAG SCREW WAS LOCKED PROXIMALLY WITH A LOCKING SCREW. NEXT A DISTAL LOCKING SCREW WAS PLACED ACROSS THE ANNE AND WAS IN GOOD POSITION ON XRAY. THE TRACTION WAS RELEASED. THE WOUNDS WERE WASHED. THE DEEP FASCIA WAS REPAIRED WITH 0 VICRYL SUTURE, THE SUB CUTANEOUS LAYER WITH 2-0 VICRYL, AND THE SKIN WITH ALPHONSO. THE WOUNDS WERE WASHED AND THEN STERILE DRESSING WAS APPLIED. PATIENT WAS EXTUBATED AND SENT TO RECOVERY ROOM. Anesthesia: GETA Surgeon: Berny Frost MD Estimated blood loss (mL): 150 Drains: No Packing: No Pathology: none sent Complications: No immediate complications Condition: stable Disposition: PACU
[2020-10-14] MEDS: fentaNYL CITRATE INJ (*CRX) 100 MCG/2 ML VIAL 25 MCG IV PUSH ×6 (13:42→14:41)
--- NOTE | 2020-10-14 14:18 | SUR.PHASEI ---
[id number] sbar faxed floor notified
--- NOTE | 2020-10-14 14:58 | PC.NURSE ---
Received patient from OR via bed with OR staff.
--- NOTE | 2020-10-14 16:05 | PC.NURSE ---
Patient refused Miralax until morning due to being postop and not wanting results this evening.
[2020-10-15] VITALS: BP 108/70; PULSE 55; RESP 20; TEMP 36.5; O2SAT 97
[2020-10-15] MEDS: HYDROmorphone HCL INJ (*CRX) 1 MG/ML SYR IV PUSH ×5 (00:10→22:01)
[2020-10-15] MEDS: SODIUM CHLORIDE 0.9% IV 1,000 ML 75 ML IV CONT (02:59)
[2020-10-15 05:15] VITALS: BP 114/81; PULSE 82; RESP 18; TEMP 36.4; O2SAT 99
[2020-10-15 05:18] LABS: Hematocrit 32.9 % (42.0-52.0); Hemoglobin 10.6 g/dL (14.0-18.0); Mean Corpuscular HGB Conc 32.2 g/dl (32-36); Mean Corpuscular Hemoglobin 30.8 pg (26-34); Mean Corpuscular Volume 95.6 fl (80-100); Platelet Count Result 241 k/mm3 (150-375); Red Blood Count 3.44 M/mm3 (4.6-6.20); Red Cell Distribution Width 13.3 % (11.5-14.5); White Blood Count 12.4 K/mm3 (4.5-10.0)
[2020-10-15 05:30] LABS: Anion Gap 3 mmol/L (8-16); Blood Urea Nitrogen 6 mg/dL (9-20); Calcium 8.2 mg/dL (8.4-10.2); Carbon Dioxide 30 mmol/L (22-30); Chloride 107 mmol/L (98-107); Estimated CRCL calculation 158 ml/min; Estimated Glomerular Filt Rate > 60; Glucose 113 mg/dL (75-110); Magnesium 1.7 mg/dL (1.6-2.3); Potassium 3.8 mmol/L (3.4-5.0); Sodium 140 mmol/L (137-145)
[2020-10-15] MEDS: oxyCODONE/ACETAMINOPHEN (*CRX) 5-325 MG TABLET 1 TABLET PO ×4 (05:43→23:49)
[2020-10-15] MEDS: oxyCODONE HCL (*CRX) 2.5 MG TAB IR PO ×4 (05:43→23:49)
--- NOTE | 2020-10-15 07:58 | PM.IMPN ---
Progress Note: A&P Assessment and Plan (1) Fracture of femur: Qualifiers: Encounter type: initial encounter Femur location: subtrochanteric Fracture alignment: displaced Fracture type: closed Laterality: right Qualified Code(s): S72.21XA - Displaced subtrochanteric fracture of right femur, initial encounter for closed fracture Code(s): S72.90XA - Unspecified fracture of unspecified femur, initial encounter for closed fracture Status: Inactive Assessment and Plan: Symptoms an x-ray consistent with hip fracture -x-ray revealed Mild posterior displacement and 30 degrees varus angulation of an intratrochanteric/subtrochanteric fracture of the proximal right femur. -Dr. Patterson has been consulted and completed INSERTION OF GAMMA ANNE RIGHT HIP FRACTURE on October 14. -patient may require increased narcotics since he takes Xtampza at home as well as oxy 7.5 PRN. For now, pt is saying the pain is controlled with Ice and PRN oxycodone after surgery, continue ice and monitor during PT/OT no N/V at this time, no lethargy, no SOB or CP. patient hasn't walked in 20+ years, lives with sister who assists him Monitor PT/OT sessions and evaluate pain control and healing to determine when ready for discharge. Will continue to monitor and make changes as needed. (2) Leukocytosis: Code(s): D72.829 - Elevated white blood cell count, unspecified Status: Acute Assessment and Plan: Improving WBC 11-13, today 12.4, No fevers, no redness most likely reactive to fall and fracture and not due to acute infectious process UA clear -no signs or symptoms of infection (3) Post-polio syndrome: Code(s): G14 - Postpolio syndrome Status: Acute Assessment and Plan: Chronic and lives at home and is usually able to transfer from the bed to wheelchair without issue. -will need PT/OT depending on ortho recommendations patient hasn't walked in 20+ years, lives with sister who assists him Monitor PT/OT sessions and evaluate pain control and healing to determine when ready for discharge. Additional Plan 4 YO MALE WITH POST POLIO SYNDROME AND NOW WITH RIGHT INTER TROCHANTERIC HIP FRACTURE. Will need to discuss discharge OPTIONS WITH THE PATIENT AND HIS SISTER. October 14 - surgery RIGHT femur GAMMA ANNE PLACEMENT October 15 recovery - PT/OT Subjective Date/time seen: 10/15/20 07:58 Interval history: Pt is a 65 year old male here for hip fracture. Patient was sitting up in bed eating his lunch at the time of my exam. Patient states that he had just completed a physical therapy session where they assisted him getting up to a chair for the first time since surgery. The patient stated he has not been walking/ambulatory for 20 years due to his post-polio syndrome. His sister assists him at home. Patient states his pain is currently controlled and he has an ice pack applied to his right hip. He currently denies constipation. He also denies any other painful injuries at this time. Pt denies nausea, vomiting, fevers, chills, constipation, diarrhea, chest pain, sob, or abdominal pain. Review of Systems Review of Systems: Narrative: Patient stated that he is always falling and has a chronic history of falling. He ran through all of his fractures including finger toe and arm fractures as well as right-sided injuries from past falls. All systems reviewed & are unremarkable except as noted in HPI and below Constitutional: Constitutional: Reports as per HPI, Denies daytime sleepiness, Denies excessive sweating, Reports frequent falls, Denies headache(s), Denies increased appetite, Denies snoring, Reports weakness and Denies weight gain Eyes: Eyes: Reports as per HPI, Denies exophthalmos, Denies diplopia, Denies floaters and Denies loss of peripheral vision ENT: Reports as per HPI, Reports Normal hearing present, Denies facial pain, Denies headache(s), Denies odynophagia and Denies tinnitus Cardiovascular: Car
[2020-10-15] MEDS: GABAPENTIN 300 MG CAPSULE 600 MG PO ×2 (08:10→20:20)
[2020-10-15] MEDS: polyethylene glycoL 3350 17 GM POWD.PACK PO (08:10)
[2020-10-15 08:17] VITALS: RESP 18; O2SAT 98
--- NOTE | 2020-10-15 09:31 | WPDANESPN ---
Anes - Prog Note Post-Op Date/Time: 10/15/20 09:31 Cardiovascular status: normal Respiratory status: normal Airway patency: baseline Mental status: baseline Post-Op hydration status: normal Vital Signs: Last Vital Signs Temp 36.4 C L 10/15/20 05:15 Pulse 82 10/15/20 05:15 Resp 18 10/15/20 08:17 BP 114/81 10/15/20 05:15 Pulse Ox 98 10/15/20 08:17 Pain Score (VAS): 06/22 I/O: Intake & Output 10/14/20 10/15/20 10/15/20 23:59 07:59 15:59 Intake Total 290 1240 Output Total 450 750 Balance -160 490 Laboratory Tests 10/15/20 05:09 10/15/20 05:09 10/15/20 10/15/20 05:09 05:09 WBC 12.4 H RBC 3.44 L Hgb 10.6 L Hct 32.9 L MCV 95.6 MCH 30.8 MCHC 32.2 RDW 13.3 Plt Count 241 MPV 10.0 Sodium 140 Potassium 3.8 Chloride 107 Carbon Dioxide 30 Anion Gap 3 L BUN 6 L Creatinine 0.30 L Estim Creat Clear Calc 158 Estimated GFR > 60 Glucose 113 H Calcium 8.2 L Magnesium 1.7 Post-procedural complaints: none Patient Feedback: Patient satisfied with anesthetic care.
[2020-10-15 10:54] VITALS: BMI 10.0; BMI 11.0
[2020-10-15 14:00] VITALS: BP 123/78; PULSE 94; RESP 16; TEMP 37.4; O2SAT 96
--- NOTE | 2020-10-15 15:09 | PM.PNORT ---
Progress Note: A&P Additional Plan POD 1 DOING WELL. SNF WHEN STABLE. Subjective Subjective Date/Time Seen: 10/15/20 15:09 POD 1 DOING WELL. PAIN CONTROLLED. NO CP OR SOB Exam Extrem: Other: VSS AFEBRILE DRESSING DRY CALF SOFT, NON TENDER Objective Data Vital Signs Vital Signs: Vital Signs - 24 hr 10/14/20 15:15 10/14/20 15:45 10/14/20 16:45 Temperature 36.2 C L 36.2 C L 36.7 C Pulse Rate 88 93 112 H Respiratory Rate 16 16 18 Blood Pressure 123/85 129/80 135/92 H Pulse Oximetry 99 100 98 10/14/20 20:05 10/15/20 00:00 10/15/20 05:15 Temperature 36.3 C L 36.5 C 36.4 C L Pulse Rate 97 55 L 82 Respiratory Rate 18 20 18 Blood Pressure 123/68 108/70 114/81 Pulse Oximetry 95 97 99 10/15/20 08:17 10/15/20 14:00 Temperature 37.4 C Pulse Rate 94 Respiratory Rate 18 16 Blood Pressure 123/78 Pulse Oximetry 98 96 Intake/Output Intake/Output: Intake & Output 10/12/20 10/13/20 10/14/20 10/15/20 23:59 23:59 23:59 23:59 Intake Total 1285 3030 2840 1720 Output Total 350 1200 1750 750 Balance 935 1830 1090 970 Meds/Results Medications: Active Medications Generic Name Dose Route Start Last Admin Trade Name Freq PRN Reason Stop Dose Admin Acetaminophen 650 mg 10/12/20 09:00 Acetaminophen 325 Mg Tablet PO Q6H PRN Mild Pain (1-3) or Fever Gabapentin 600 mg 10/12/20 09:00 10/15/20 08:10 Gabapentin 300 Mg Capsule PO 600 mg Q12HR PUSHPA Administration Naloxone HCl 0.1 mg 10/12/20 08:53 Naloxone Hcl 0.4 Mg/Ml Vial IV PUSH Q5MIN PRN narcotic overdose Ondansetron HCl 4 mg 10/12/20 02:09 Ondansetron Inj 4 Mg/2 Ml Vial IV PUSH Q6H PRN Nausea And Vomiting Oxycodone HCl 2.5 mg 10/12/20 09:00 10/15/20 11:40 Oxycodone Hcl (*Crx) 2.5 Mg Tab Ir PO 2.5 mg Q6H PRN Administration Pain 4-6 Oxycodone/Acetaminophen 1 tablet 10/13/20 09:42 10/15/20 11:39 Oxycodone/Acetaminophen (*Crx) 5-325 Mg Tablet PO 11/11/20 02:16 1 tablet Q6H PRN Administration Pain Rated 4-6 Polyethylene Glycol 17 gm 10/14/20 09:30 10/15/20 08:10 Polyethylene Glycol 3350 17 Gm Powd.Pack PO 17 gm QAM PUSHPA Administration Senna/Docusate Sodium 1 tab 10/14/20 09:30 Senna/Docusate Sodium Tablet PO HS PRN Constipation Radiology Results: ITS Impressions Intraoperative X-Ray 10/14/20 13:28 IMPRESSION: Fluoroscopy used during right hip gamma nail insertion. Labs Labs: Laboratory Results - last 24 hr 10/15/20 10/15/20 05:09 05:09 WBC 12.4 H RBC 3.44 L Hgb 10.6 L Hct 32.9 L MCV 95.6 MCH 30.8 MCHC 32.2 RDW 13.3 Plt Count 241 MPV 10.0 Sodium 140 Potassium 3.8 Chloride 107 Carbon Dioxide 30 Anion Gap 3 L BUN 6 L Creatinine 0.30 L Estim Creat Clear Calc 158 Estimated GFR > 60 Glucose 113 H Calcium 8.2 L Magnesium 1.7 Quality VTE Prophylaxis VTE prophylaxis: mechanical ordered (SCDs)
[2020-10-16] VITALS: BP 114/73; PULSE 83; RESP 18; TEMP 37.3; O2SAT 98
[2020-10-16] MEDS: HYDROmorphone HCL INJ (*CRX) 1 MG/ML SYR IV PUSH ×3 (04:45→16:50)
[2020-10-16 05:26] VITALS: BP 118/82; PULSE 87; RESP 18; TEMP 36.9; O2SAT 99
[2020-10-16 05:34] LABS: Hematocrit 32.4 % (42.0-52.0); Hemoglobin 10.5 g/dL (14.0-18.0); Mean Corpuscular HGB Conc 32.4 g/dl (32-36); Mean Corpuscular Hemoglobin 30.9 pg (26-34); Mean Corpuscular Volume 95.3 fl (80-100); Mean Platelet Volume 9.9 fl (7.4-10.4); Platelet Count Result 255 k/mm3 (150-375); Red Cell Distribution Width 13.6 % (11.5-14.5); White Blood Count 10.1 K/mm3 (4.5-10.0)
[2020-10-16 05:55] LABS: Alanine Aminotransferase 15 U/L (4-50); Albumin Level 2.9 g/dL (3.5-5.1); Alkaline Phosphatase 53 U/L (38-126); Anion Gap 1 mmol/L (8-16); Aspartate Amino Transferase 29 U/L (17-59); Bilirubin,Total 0.6 mg/dL (0.2-1.3); Blood Urea Nitrogen 6 mg/dL (9-20); Carbon Dioxide 34 mmol/L (22-30); Chloride 103 mmol/L (98-107); Estimated CRCL calculation 124 ml/min; Estimated Glomerular Filt Rate > 60; Glucose 97 mg/dL (75-110); Potassium 3.3 mmol/L (3.4-5.0); Sodium 138 mmol/L (137-145)
[2020-10-16] MEDS: GABAPENTIN 300 MG CAPSULE 600 MG PO ×2 (08:10→20:39)
[2020-10-16] MEDS: polyethylene glycoL 3350 17 GM POWD.PACK PO (08:10)
[2020-10-16] MEDS: oxyCODONE/ACETAMINOPHEN (*CRX) 5-325 MG TABLET 1 TABLET PO ×2 (08:11→20:39)
[2020-10-16 08:12] VITALS: RESP 18; O2SAT 99
[2020-10-16] MEDS: oxyCODONE HCL (*CRX) 2.5 MG TAB IR PO ×2 (08:12→20:40)
[2020-10-16] MEDS: POTASSIUM CHLORIDE 20 MEQ TABLET 40 MEQ PO (08:36)
--- NOTE | 2020-10-16 09:20 | PM.PNORT ---
Progress Note: A&P Assessment and Plan (1) Intertrochanteric fracture of right femur: Qualifiers: Encounter type: initial encounter Fracture type: closed Fracture alignment: displaced Qualified Code(s): S72.141A - Displaced intertrochanteric fracture of right femur, initial encounter for closed fracture Code(s): S72.141A - Displaced intertrochanteric fracture of right femur, initial encounter for closed fracture Status: Acute Assessment and Plan: POD #2: INSERTION OF GAMMA NANE RIGHT HIP FRACTURE Continue PT/OT for transfers. NWB RLE. Continue pain control. Ice lateral. DVT prophylaxis. SCDs. Incentive Spirometry Monitor dressing. Change daily. Dispo: SNF vs. Acute Rehab pending medical clearance. COVID test pending. (2) Post-polio syndrome: Code(s): G14 - Postpolio syndrome Status: Acute Assessment and Plan: PT/OT. NWB. Assistance with transfers. Patient will benefit from 2-3 weeks of SNF for transfer training. Subjective Subjective Date/Time Seen: 10/16/20 09:20 POD #2: INSERTION OF GAMMA ANNE RIGHT HIP FRACTURE Pain improved. No new complaints. Review of Systems Review of Systems: All systems reviewed & are unremarkable except as noted in HPI and below Exam Const: General: comfortable and no acute distress Resp: Effort & Inspection: normal respiratory effort Cardio: Rate: regular rate Rhythm: regular rhythm GI: Inspection: non-distended GI Palp: Yes Soft to palpation and No Tenderness to palpation present (GI) Neuro: General: No gait normal Cognition (Neuro): normal cognition Extrem: Right lower extremity: hip/thigh (Incision c/d/i. ) Details: tenderness Location: of the hip Location: laterally, swelling Location: at the hip (lateral ), abnormal ROM (limited due to recent surgical intervention ) and ecchymosis (lateral ), knee Details: no tenderness and no swelling, lower leg (Negative Jose's Sign, atrophy/weakness at baseline due to polio ) and foot Details: vascular exam Details: dorsalis pedis pulse present Objective Data Vital Signs Vital Signs: Vital Signs - 24 hr 10/15/20 14:00 10/16/20 00:00 10/16/20 05:26 Temperature 37.4 C 37.3 C 36.9 C Pulse Rate 94 83 87 Respiratory Rate 16 18 18 Blood Pressure 123/78 114/73 118/82 Pulse Oximetry 96 98 99 Intake/Output Intake/Output: Intake & Output 10/13/20 10/14/20 10/15/20 10/16/20 23:59 23:59 23:59 23:59 Intake Total 3030 2840 2670 190 Output Total 1200 1750 2100 800 Balance 1830 1090 570 -610 Meds/Results Medications: Active Medications Generic Name Dose Route Start Last Admin Trade Name Freq PRN Reason Stop Dose Admin Acetaminophen 650 mg 10/12/20 09:00 Acetaminophen 325 Mg Tablet PO Q6H PRN Mild Pain (1-3) or Fever Gabapentin 600 mg 10/12/20 09:00 10/16/20 08:10 Gabapentin 300 Mg Capsule PO 600 mg Q12HR PUSHPA Administration Hydromorphone HCl 1 mg 10/16/20 08:13 Hydromorphone Hcl Inj (*Crx) 1 Mg/Ml Syr IV PUSH Q6H PRN uncontrolled pain Naloxone HCl 0.1 mg 10/12/20 08:53 Naloxone Hcl 0.4 Mg/Ml Vial IV PUSH Q5MIN PRN narcotic overdose Ondansetron HCl 4 mg 10/12/20 02:09 Ondansetron Inj 4 Mg/2 Ml Vial IV PUSH Q6H PRN Nausea And Vomiting Oxycodone HCl 2.5 mg 10/12/20 09:00 10/16/20 08:12 Oxycodone Hcl (*Crx) 2.5 Mg Tab Ir PO 2.5 mg Q6H PRN Administration Pain 4-6 Oxycodone HCl 10 mg 10/16/20 12:00 Oxycodone Hcl (*Crx) 5 Mg Tab Ir PO Q6HR PRN Pain Rated 7-10 Oxycodone/Acetaminophen 1 tablet 10/13/20 09:42 10/16/20 08:11 Oxycodone/Acetaminophen (*Crx) 5-325 Mg Tablet PO 11/11/20 02:16 1 tablet Q6H PRN Administration Pain Rated 4-6 Polyethylene Glycol 17 gm 10/14/20 09:30 10/16/20 08:10 Polyethylene Glycol 3350 17 Gm Powd.Pack PO 17 gm QAM PUSHPA Administration Senna/Docusate Sodium 1 tab 10/14/20 09:30 Senna/Docusate Sodium Tablet
--- NOTE | 2020-10-16 10:27 | PM.IMPN ---
Progress Note: A&P Assessment and Plan (1) Fracture of femur: Qualifiers: Encounter type: initial encounter Femur location: subtrochanteric Fracture alignment: displaced Fracture type: closed Laterality: right Qualified Code(s): S72.21XA - Displaced subtrochanteric fracture of right femur, initial encounter for closed fracture Code(s): S72.90XA - Unspecified fracture of unspecified femur, initial encounter for closed fracture Status: Inactive Assessment and Plan: s/p Gamma denisha placement for right hip fracture 10/14/20 -patient is doing well and his pain is improving -I have increased his narcotics at discharge slightly from his baseline narcotic prescription -Narcan prescribed for overdose (2) Leukocytosis: Code(s): D72.829 - Elevated white blood cell count, unspecified Status: Acute Assessment and Plan: Improving, most likely reactive and not due to acute infectious process -no signs or symptoms of infection (3) Post-polio syndrome: Code(s): G14 - Postpolio syndrome Status: Acute Assessment and Plan: Chronic and lives at home and is usually able to transfer from the bed to wheelchair without issue. -discharged to SNF Time Spent With Patient Time with patient: 25 - 35 minutes Subjective Date/time seen: 10/16/20 10:27 Interval history: late entry, patient was seen 10/16/2020 Pt is a 65 year old male here for hip fracture. Patient was seen and states he is doing better. His current pain is 5/10. At the time my exam he had not had a bowel movement since admission. He has no numbness, tingling or swelling to his right leg. He further denies nausea, vomiting, fevers, chills, chest pain, shortness of breath or cough. Review of Systems Review of Systems: All systems reviewed & are unremarkable except as noted in HPI and below Exam Narrative: Exam Narrative: General: Patient resting comfortably, sitting in bed in no acute distress HEENT: Asymmetry due to polio Neck: supple Neuro: Alert and oriented x 4. sensation intact BLE and BUE CV:RRR Resp:CTA Abd: Soft, non distended. No pain to palpation. Positive bowel sounds. Well-healed scars from previous abdominal surgeries Extremities: Right leg/ hip with surgical incision and sterile dressing intact, no drainage noted, with 2+ pulses and sensation intact. BLE weakness. Objective Data Vital Signs Vital Signs: Vital Signs - 24 hr 10/16/20 14:00 10/16/20 20:13 10/17/20 00:00 Temperature 98.0 F 98.7 F 97.8 F Pulse Rate 103 H 101 H 97 Respiratory Rate 22 H 18 18 Blood Pressure 134/93 H 112/78 113/75 Pulse Oximetry 96 100 99 10/17/20 05:08 Temperature 97.4 F L Pulse Rate 89 Respiratory Rate 18 Blood Pressure 113/75 Pulse Oximetry 98 Intake/Output Intake/Output: Intake & Output 10/14/20 10/15/20 10/16/20 10/17/20 23:59 23:59 23:59 23:59 Intake Total 2840 2790 990 360 Output Total 1750 2100 1400 400 Balance 1090 690 -410 -40 Meds/Results Medications: Active Medications Generic Name Dose Route Start Last Admin Trade Name Freq PRN Reason Stop Dose Admin Acetaminophen 650 mg 10/12/20 09:00 Acetaminophen 325 Mg Tablet PO Q6H PRN Mild Pain (1-3) or Fever Fondaparinux 2.5 mg 10/17/20 09:00 10/17/20 09:22 Fondaparinux Sodium 2.5 Mg/0.5 Ml Syringe SUB-Q 2.5 mg DAILY PUSHPA Administration Gabapentin 600 mg 10/12/20 09:00 10/17/20 09:23 Gabapentin 300 Mg Capsule PO 600 mg Q12HR PUSHPA Administration Hydromorphone HCl 1 mg 10/16/20 08:13 10/17/20 06:44 Hydromorphone Hcl Inj (*Crx) 1 Mg/Ml Syr IV PUSH 1 mg Q6H PRN Administration uncontrolled pain Naloxone HCl 0.1 mg 10/12/20 08:53 Naloxone Hcl 0.4 Mg/Ml Vial IV PUSH Q5MIN PRN narcotic overdose Ondansetron HCl 4 mg 10/12/20 02:09 Ondansetron Inj 4 Mg/2 Ml Vial IV PUSH Q6H PRN Nausea And Vomiting Oxycodone
[2020-10-16 14:00] VITALS: BP 134/93; PULSE 103; RESP 22; TEMP 36.7; O2SAT 96
[2020-10-16 16:10] LABS: SARS-CoV-2 RNA PCR Negative
[2020-10-16 20:13] VITALS: BP 112/78; PULSE 101; RESP 18; TEMP 37.1; O2SAT 100
[2020-10-17] VITALS: BP 113/75; PULSE 97; RESP 18; TEMP 36.6; O2SAT 99
[2020-10-17] MEDS: HYDROmorphone HCL INJ (*CRX) 1 MG/ML SYR IV PUSH ×2 (00:12→06:44)
[2020-10-17] MEDS: oxyCODONE HCL (*CRX) 2.5 MG TAB IR PO (03:32)
[2020-10-17] MEDS: oxyCODONE/ACETAMINOPHEN (*CRX) 5-325 MG TABLET 1 TABLET PO (03:33)
[2020-10-17 05:08] VITALS: BP 113/75; PULSE 89; RESP 18; TEMP 36.3; O2SAT 98
[2020-10-17] MEDS: oxyCODONE HCL (*CRX) 5 MG TAB IR 10 MG PO ×2 (09:21→15:29)
[2020-10-17] MEDS: FONDAPARINUX SODIUM 2.5 MG/0.5 ML SYRINGE SUB-Q (09:22)
[2020-10-17] MEDS: GABAPENTIN 300 MG CAPSULE 600 MG PO (09:23)
[2020-10-17] MEDS: oxyCODONE HCL (*CRX) 5 MG TAB IR PO (13:10)
[2020-10-17 14:00] VITALS: BP 104/90; PULSE 112; RESP 18; TEMP 37.2; O2SAT 98
--- NOTE | 2020-10-17 15:05 | PM.DS ---
DS: Admitting Diagnosis Admitting Diagnosis Admitting Diagnosis: hip fracture DS: Discharge Diagnosis Discharge Diagnosis (1) Fracture of femur: Qualifiers: Encounter type: initial encounter Femur location: subtrochanteric Fracture alignment: displaced Fracture type: closed Laterality: right Qualified Code(s): S72.21XA - Displaced subtrochanteric fracture of right femur, initial encounter for closed fracture Code(s): S72.90XA - Unspecified fracture of unspecified femur, initial encounter for closed fracture Status: Inactive Assessment and Plan: s/p Gamma denisha placement for right hip fracture 10/14/20 -patient is doing well with no complications -I have increased his narcotics at discharge slightly from his baseline narcotic prescription -Narcan prescribed for overdose (2) Leukocytosis: Code(s): D72.829 - Elevated white blood cell count, unspecified Status: Acute Assessment and Plan: Improving, most likely reactive and not due to acute infectious process -no signs or symptoms of infection (3) Post-polio syndrome: Code(s): G14 - Postpolio syndrome Status: Acute Assessment and Plan: Chronic and lives at home and is usually able to transfer from the bed to wheelchair without issue. -discharged to SNF DS: Summary Hospital Course Hospital Course: Patient is 65-year-old male who is on disability due to polio who fell out of bed and had immediate right hip pain and was found to have a mild posterior displacement and 30 degree varus angulation of intratrochanteric/subtrochanteric fracture of the proximal right femur. Vitals in the ER were temperature 97.9?, pulse 95, respiratory rate 20, blood pressure 101/83, pulse ox 97 on room air. Initial white blood cell count was 17.6 it was likely due to reactionary changes. No infection was suspected and this improved to 10.1 the day of discharge. BMP throughout his stay showed occasional hypokalemia but overall was within normal limits. On 10/14/20 he underwent an insertion of a Gamma denisha for his right hip fracture with Dr. Patterson. Patient tolerated this procedure well and did not have any further complications. He had some pain which was managed by pain medication. The day of discharge he had a few small blisters to the anterior femur and some erythema. It was thought to be due to the tape and this was changed. Ortho was notified and Dr. Bichalo was okay with discharge and to f/u with them in the office. The day of discharge the patient was educated about the worrisome signs and symptoms come back to emergency room for and was discharged stable condition. Status at Discharge Functional status at discharge: bed bound Overall status at discharge: patient is progressing back to baseline Time Spent with Patient Time attestation: Total time spent providing and/or coordinating discharge services:34 min Time spent: Greater than 30 minutes Exam Narrative: Exam Narrative: General: Patient resting comfortably, sitting in bed in no acute distress HEENT: Asymmetry due to polio Neck: supple Neuro: Alert and oriented x 4. sensation intact BLE and BUE CV:RRR Resp:CTA Abd: Soft, non distended. No pain to palpation. Positive bowel sounds. Well-healed scars from previous abdominal surgeries Extremities: Right leg/ hip with surgical incision and sterile dressing intact. This was removed and the incision site was examined and was clean and dry without dehiscence, discharge, or bleeding. Near the tape blind there were a few small blisters that were intact with some mild redness. No pain to palpation with these. Pulses 2+, sensation intact. BLE weakness (chronic). DS: Data Data Completed and Pending Labs on day of discharge: Labs from last 24 hours 10/16/20 00:25 SARS-CoV-2 RNA (RT-PCR) Negative Discharge Plan Discharge Attending physician on discharge: Jennifer [employer]
== END 2020-10-17 16:05 | DRG 482 ==
PROVIDERS: Nurse Practitioner; Orthopaedic Surgery; Physician Assistant; Admitting Provider Internal Medicine; PCP Internal Medicine; Visit Provider Internal Medicine
PROC: 0QS636Z Reposition Right Upper Femur with Intramedullary Internal Fixation Device, Percutaneous Approach (ICD-10-PCS; CPT 27245; principal; 2020-10-14 10:30)
DX: S72.141A Displaced intertrochanteric fracture of right femur, initial encounter for closed fracture (principal); W06.XXXA Fall from bed, initial encounter; Z20.822 Contact with and (suspected) exposure to COVID-19; G14 Postpolio syndrome; D72.829 Elevated white blood cell count, unspecified; G89.21 Chronic pain due to trauma; Z66 Do not resuscitate; Z87.891 Personal history of nicotine dependence; Z99.3 Dependence on wheelchair
CPT/HCPCS: 36415; 80048; 80053; 83735; 85025; 85027; 86850; 86900; 86901; 97110; 97162; 97166; 97530; A9270; C1713; C1769; C9803; J0690; J1100; J1170; J1652; J2250; J2270; J2405; J2704; J3010; J3480; J7030; J7120; U0003; U0005